=== PATIENT | male | born 1960 | race Caucasian/White ===

== ENCOUNTER 2022-09-10 21:10 | Emergency (ER) | payer SELFPAY ==
[2022-09-10] MEDS ORDERED: Lidocaine 1% 5 ML VIAL INJECT ONE (21:20)
[2022-09-10] MEDS ORDERED: Diphtheria,Pertussis(Acell),Tetanus Vaccine 0.5 ML Syringe IM ONE (21:27)
== END 2022-09-10 21:51 | disposition home or self-care (01) ==
LOC: JP.ED 21:10
DX: S61.241A Puncture wound with foreign body of left index finger without damage to nail, initial encounter (principal); F17.210 Nicotine dependence, cigarettes, uncomplicated; Z86.16 Personal history of COVID-19; Z23 Encounter for immunization; W45.8XXA Other foreign body or object entering through skin, initial encounter
CPT/HCPCS: 90471; 90715; 99283-25